=== PATIENT | male | born 1955 | race Caucasian/White ===

== ENCOUNTER 2016-09-10 15:17 | Emergency (ER) | payer BC ==
--- NOTE | ~2016-09-10 | ER ---
PATIENT'S NAME: REBEKAH ROBLERO [facility] AGE: 61 Y [address] ROOM: [place] [address] LOCATION: [facility] ADMIT DATE: 09/10/2016 ER/Outpatient Report DISCHARGE DATE: 09/10/2016 FAMILY PHYSICIAN: Matt Will MD ATTENDING PHYSICIAN: Rock An CHIEF COMPLAINT: Thumb versus table saw injury. HISTORY OF PRESENT ILLNESS: The injury happened earlier today. He was seen in [facility] where he was given antibiotics. His tetanus was updated and he did receive x-rays. The patient was cutting some wood with the table saw earlier today when his thumb hit the blade. He states he is left-handed. He has no other acute issues. He did come by private auto. They did call ahead. No other concerns or symptoms at this time. PAST MEDICAL HISTORY: Documented in the record and have been reviewed by me. SOCIAL HISTORY: Documented in the record and have been reviewed by me. MEDICATIONS: Documented in the record and have been reviewed by me. ALLERGIES: DOCUMENTED IN THE RECORD AND HAVE BEEN REVIEWED BY ME. REVIEW OF SYSTEMS: All systems were reviewed and negative except as noted in the HPI. PHYSICAL EXAMINATION: VITAL SIGNS: Blood pressure 167/82, pulse 92, respiratory rate 16, temperature 97.5, and SpO2 is 96% on room air. Pain is 5/10. GENERAL: An age-appropriate male in no obvious pain or distress, sitting upright on the exam table. NEUROLOGIC: Awake and alert. GCS 15. No focal deficits. No asymmetry other than loss of sensation to the distal aspect of the left thumb. HEENT: Normocephalic and atraumatic. Eyes are PERRL. Oropharynx is clear. NECK: Supple. Trachea is midline. CHEST: Heart is regular rate and rhythm with no murmurs. LUNGS: Clear to auscultation bilaterally with no rhonchi, wheezes, or rales. ABDOMEN: Benign. EXTREMITIES: Warm and well perfused. The left thumb is notable for ability PATIENT'S NAME: REBEKAH ROBLERO [facility] AGE: 61 Y [address] ROOM: [place] [address] LOCATION: [facility] ADMIT DATE: 09/10/2016 ER/Outpatient Report DISCHARGE DATE: 09/10/2016 FAMILY PHYSICIAN: Matt Will MD ATTENDING PHYSICIAN: Rock An to flex weakly at the IP joint. There is markedly diminished sensation over the distal aspect of the thumb. There is visible tendon in the wound base. There is a very large tissue defect on the volar aspect that does involve the skin of the IP joint. SKIN: Otherwise, warm and well perfused. LABORATORY DATA AND IMAGING STUDIES: Labs and X-rays: None were obtained here. Films from prior to arrival were reviewed. IMPRESSION: Complicated open thumb interphalangeal joint laceration with possible open joint. EMERGENCY DEPARTMENT COURSE: The patient was seen and evaluated. Films were reviewed. The patient did not require pain medication. Dr. Luciano, orthopedic surgeon, was consulted. He came and evaluated the patient, washed the wound out at bedside, closed it up temporarily, and will arrange a followup with Dr. Rivera, or other hand surgeon of choice. All questions were answered, and the patient was discharged in good condition. MD GRUU MEJIA/modl /[id number] d: 09/11/16 1236 t: 09/19/16 0924, OUTPATIENT REPORT
--- NOTE | ~2016-09-10 | CON ---
PATIENT'S NAME: REBEKAH ROBLERO [facility] AGE: 61 Y [address] ROOM: [place], [place] [address] LOCATION: [facility] ADMIT DATE: 09/10/2016 Consultation DISCHARGE DATE: 09/10/2016 FAMILY PHYSICIAN: Matt Will MD ATTENDING PHYSICIAN: Rock An DATE OF CONSULTATION: 09/10/2016 CHIEF COMPLAINT: Left thumb injury. HISTORY OF PRESENT ILLNESS: The patient is a 61-year-old, left-hand dominant male, who was working at home today with a table saw. He had an injury to his left thumb. Denies any other injury. He was seen in outside hospital where x-rays showed a significant laceration with tendon involvement. He was transferred to [facility]. He did receive 2 g of Ancef plus a tetanus in the outside hospital. PAST MEDICAL HISTORY, SURGICAL HISTORY, MEDICATIONS, AND ALLERGIES: Per the ER intake form. PHYSICAL EXAMINATION: GENERAL: Well-developed, well-nourished male, in minimal distress. He is awake, alert, and cooperative with exam. Denies any other injuries with the exception of the left thumb. Orthopedic exam is unremarkable with the exception of the left thumb, he has a significant laceration over the volar aspect of the thumb, primarily volar and radial. He has a decreased light touch sensation on ulnar side and absent light touch sensation on the radial side distal to the laceration. Cap refill is less than 2 seconds. He does have some flexion of the thumb, but there is obvious tendon involvement. IMAGING DATA: X-rays reviewed show some arthritic change to the IP joint, but no obvious fracture visible. There is what looks like an old avulsion injury off the base of the distal phalanx, but again this does not appear to be acute. On our exam, it does appear that this likely extends in the IP joint. ASSESSMENT AND PLAN: Recommendation was made for incision and drainage in the ER and then I spoke with Dr. Rivera who is our hand surgeon. I believe he is going to need nerve and tendon repair and also probably some sort of soft tissue coverage. So is going to see Dr. Rivera tomorrow. So procedure in the ER, incision and drainage and skin closure was performed. There was still a large area of skin loss which was covered with a Xeroform and a splint was applied. The patient was discharged in a stable condition with Keflex and a [place] for pain. PATIENT'S NAME: REBEKAH ROBLERO [facility] AGE: 61 Y [address] ROOM: [place], [place] [address] LOCATION: [facility] ADMIT DATE: 09/10/2016 Consultation DISCHARGE DATE: 09/10/2016 FAMILY PHYSICIAN: Matt Will MD ATTENDING PHYSICIAN: Rock An He is in a splint which he is to keep on. He is following up with Dr. Rivera tomorrow morning and they already have that appointment. They have made it here when I was in the office. See procedure note for details. MD VIANEY ESTEVEZ/juve /[id number] d: 09/11/16 0140 t: 10/10/16 1403, CONSULTATION REPORT
--- NOTE | ~2016-09-10 | OR ---
PATIENT'S NAME: REBEKAH ROBLERO [facility] AGE: 61 Y [address] ROOM: [place] [address] LOCATION: [facility] ADMIT DATE: 09/10/2016 OR/Procedure Report DISCHARGE DATE: 09/10/2016 FAMILY PHYSICIAN: Matt Will MD ATTENDING PHYSICIAN: Rock An SURGEON: Guevara Luciano MD GIS SPECIALIST: None. DATE OF PROCEDURE: 09/10/2016 PREOPERATIVE DIAGNOSIS: Left thumb laceration with tendon and nerve involvement and open interphalangeal joint. POSTOPERATIVE DIAGNOSIS: Left thumb laceration with tendon and nerve involvement and open interphalangeal joint. PROCEDURES: Irrigation and debridement, left thumb including debridement of left thumb interphalangeal joint and then simple closure of the laceration 3 cm. ANESTHESIA: Local. ESTIMATED BLOOD LOSS: Minimal. FLUID REPLACEMENTS: None. COMPLICATIONS: None. INDICATIONS: The patient is a 61-year-old male who was seen in the ER with a complex laceration of the left thumb with nerve and tendon involvement, also appeared to involve the IP joint. Recommendations were made for operative I and D and partial closure with followup with Dr. Rivera for definitive treatment of the nerve and tendon injury and treatment of the tissue loss. Risks and benefits were explained in detail to the patient and his , they agreed to proceed. TECHNIQUE: The patient was given a digital block in the ER after prepping with Betadine. We then prepped the entire thumb with Betadine. We thoroughly explored the wound. There was no debris or nonviable tissue. There did appear to be laceration of the radial-sided neurovascular bundle as well as the flexor tendon, as well as extension into the IP joint. There was no obvious bony involvement. There was no significant debris. Little bit of the ragged skin edges were trimmed. We then thoroughly irrigated with 2 L of normal saline using a syringe, then closed the intact skin edges together with a 4-0 nylon. A Xeroform was placed over the residual open wound. The patient was placed in a well-padded, well-molded, thumb spica splint. The patient PATIENT'S NAME: REBEKAH ROBLERO [facility] AGE: 61 Y [address] ROOM: [place] [address] LOCATION: [facility] ADMIT DATE: 09/10/2016 OR/Procedure Report DISCHARGE DATE: 09/10/2016 FAMILY PHYSICIAN: Matt Will MD ATTENDING PHYSICIAN: Rock An tolerated the procedure well without any complications. He was discharged to home in stable condition. He will follow up with Dr. Rivera tomorrow. MD VIANEY ESTEVEZ/juve /[id number] d: 09/11/16 0050 t: 10/10/16 1406, OPERATIVE SUMMARY
== END 2016-09-10 17:22 | disposition disaster alternative care site (69) ==
LOC: GACC 15:17
PROC: 0HQGXZZ Repair Left Hand Skin, External Approach (ICD-10-PCS; principal; 2016-09-10)
DX: S61.012A Laceration without foreign body of left thumb without damage to nail, initial encounter (principal); E11.9 Type 2 diabetes mellitus without complications; I11.9 Hypertensive heart disease without heart failure; F32.9 Major depressive disorder, single episode, unspecified; K21.9 Gastro-esophageal reflux disease without esophagitis; Z79.84 Long term (current) use of oral hypoglycemic drugs; Z79.899 Other long term (current) drug therapy; Z88.8 Allergy status to other drugs, medicaments and biological substances; W31.2XXA Contact with powered woodworking and forming machines, initial encounter; Y92.009 Unspecified place in unspecified non-institutional (private) residence as the place of occurrence of the external cause
CPT/HCPCS: A9270